=== PATIENT | male | born 1975 | race Caucasian/White ===

== ENCOUNTER 2016-05-15 09:51 | Emergency (ER) | payer OTHER ==
--- NOTE | 2016-05-15 11:03 | ED EKG INTERP ---
EKG Interpretation - EKG Time of EKG reading by physician:: 10:03 EKG Read and Signed by:: Stevenson Panda EKG Interpretation (*Must complete 3 of following elements*): Normal Rate: 83 Rhythm: Normal sinus [employer]: normal QRS: normal TX Interval: normal ST Wave: normal
[2016-05-15 11:40] LABS: MANUAL DIFF NEEDED? NO
[2016-05-15 11:46] LABS: BASO% 0.3 % (0.0-0.8); EOS# 0.26 X1000 (0.0-0.7); EOS% 2.1 % (0.0-10.0); HEMATOCRIT 43.7 % (42.0-52.0); HEMOGLOBIN 14.8 g/dL (14.0-18.0); IMM GRAN# 0.07 X1000 (0.0-0.04); IMM GRAN% 0.6 % (0.0-0.5); LYMPH# 2.28 X1000 (1.2-3.4); LYMPH% 18.8 % (20.5-51.1); MCHC 33.9 g/dL (33-37); MCV 91.4 FL (81-99); MONO# 1.72 X1000 (0.11-0.59); MONO% 14.2 % (1.7-9.3); MPV 9.7 FL (7.4-10.4); PLT 343 X1000 (130-400); RBC 4.78 XMIL (4.7-6.1)
[2016-05-15 11:54] LABS: INR 1.05; PROTIME 11.1 Seconds (9.2-11.7); PTT 27.1 Seconds (22.0-36.0)
[2016-05-15 12:16] LABS: BUN 8 mg/dL (8-22); CALCIUM 8.4 mg/dL (8.8-10.2); GOT 19 U/L (10-34); TCO2 24 mmol/L (25-35); TOTAL BILIRUBIN 1.24 mg/dL (0.20-1.00)
[2016-05-15 12:17] LABS: AGAP 14; ALBUMIN 3.4 g/dL (3.5-5.0); ALKALINE PHOSPHATASE 82 U/L (32-122); CHLORIDE 99 mmol/L (98-107); COSMO 273; GPT 20 U/L (10-44); POTASSIUM 3.5 mmol/L (3.5-5.1); SODIUM 137 mmol/L (136-145)
--- NOTE | 2016-05-15 12:43 | Diag Imaging Result Document ---
PROCEDURE NAME: HEAD W/O CONTRAST - 05/15/[address]: COMPARISON: None. FINDINGS: The ventricles and sulci are normal in size and contour. There is no mass, hemorrhage, or evidence of acute ischemia. The bony calvaria is intact. The visualized paranasal sinuses and mastoid air cells are clear. IMPRESSION: Negative head CT.
--- NOTE | 2016-05-15 13:52 | Diag Imaging Result Document ---
PROCEDURE NAME: CHEST-2 VIEWS - 05/15/2016 PA AND LATERAL RADIOGRAPH OF THE CHEST: COMPARISON: None available. FINDINGS: The lungs are grossly clear. There is no discrete pleural fluid collection or evidence of pneumothorax. The cardiomediastinal silhouette and upper airway are grossly unremarkable. IMPRESSION: No evidence of acute chest pathology.
[2016-05-15 14:43] LABS: URINE CULTURE NEEDED? NO; URINE MICRO REVIEW NEEDED? NO; URINE SOURCE CLEAN CATCH
[2016-05-15 14:47] LABS: BILIRUBIN URINE NEGATIVE (NEGATIVE); BLOOD URINE NEGATIVE (NEGATIVE); COLOR YELLOW; GLUCOSE URINE NEGATIVE (NEGATIVE); LEUKOCYTES URINE NEGATIVE (NEGATIVE); NITRITE URINE NEGATIVE (NEGATIVE); PROTEIN URINE NEGATIVE (NEGATIVE); SP GRAVITY URINE 1.011; TURBIDITY URINE CLEAR (CLEAR); UR EPITHELIAL CELLS <10 /HPF (<10); URINE BACTERIA NEGATIVE /HPF; URINE RBC <10 /HPF (<10); URINE WBC <10 /HPF (<10); UROBILINOGEN URINE 3 mg/dL (NORMAL)
[2016-05-15 15:24] LABS: UR AMPHETAMINES QUAL NONE DETECTED (NONE DETECT); UR BARBITUATES QUAL NONE DETECTED (NONE DETECT); UR BENZODIAZEPIN QUAL NONE DETECTED (NONE DETECT); UR CANNABINOIDS QUAL NONE DETECTED (NONE DETECT); UR COCAINE QUAL NONE DETECTED (NONE DETECT); UR METHADONE QUAL NONE DETECTED (NONE DETECT); UR OPIATES QUAL NONE DETECTED (NONE DETECT); UR OXYCODONE QUAL NONE DETECTED (NONE DETECT); UR PCP QUAL NONE DETECTED (NONE DETECT)
--- NOTE | 2016-05-15 15:30 | PROVIDER DOCUMENTATION ---
HPI-Musculoskeletal Pain/Inj - GENERAL Chief Complaint: Extremity Pain Stated Complaint: heaviness/little use of lft arm Time Seen by Provider: 05/15/16 15:10 Source: patient - HX OF PRESENT ILLNESS-MUSKULOSKELTAL Nature of Presenting Problem: 41 yo M presents to ED with cc of L hand numbness and tingling that began last night as pt drove home from work. Pt reports that his hand turned blue at that time. Pt's hand is not blue in ED. Pt reports no injury. Pt has hx of Crohn's colitis. Upon arrival to ED pt is in no apparent distress. Quality of Pain: reports: other (tingling, numbness) Severity in ED: mild Onset/Duration: abrupt, last night Timing: improving Modifying Factors: improves with: immobilization Any recent injury?: No Locality of Occurance: Other (In car while driving) Similar Symptoms Previously?: No Recently seen or treated by another doctor?: No - UPPER EXTREMITY PAIN/INJURY Extremities Pain Location: hand: left (numbness and tingling) Associated Symptoms: reports: tingling in upper ext, weakness in upper ext Review of Systems - Adult - REVIEW OF SYSTEMS - ADULT Constitutional: reports: no symptoms reported. denies: chills, fever Eyes: reports: no symptoms reported. denies: discharge, blurred vision Ears, Nose, Mouth & Throat: reports: no symptoms reported. denies: ear pain, nose pain Cardiovascular: reports: no symptoms reported. denies: chest pain, edema Respiratory: reports: no symptoms reported. denies: cough, dyspnea on exertion Gastrointestinal: reports: no symptoms reported. denies: abdominal pain, hematemesis Genitourinary: reports: no symptoms reported. denies: dysuria, discharge Musculoskeletal: reports: muscle weakness (L hand). denies: bone pain Integumentary: reports: no symptoms reported. denies: hives, itching Neurological: reports: numbness (L hand), paresthesia (L hand) Psychiatric: reports: no symptoms reported. denies: anxiety, anti-depressant use Endocrine: reports: no symptoms reported. denies: cold intolerance, heat intolerance Hematologic/Lymphatic: reports: no symptoms reported. denies: blood clots, easy bruising Allergic/Immunologic: reports: no symptoms reported. denies: allergic reactions , eczema All Other Systems: Reviewed and Negative Past History - Adult - PAST MEDICAL HISTORY-ADULT Review of Records: reports: Old Records Reviewed, Nursing Assessment Review, Medications Reviewed Gastrointestinal: reports: Crohn's - IMMUNIZATION STATUS Childhood Immunizations: See Nurse Assessment Flu Vaccine: See Nurse Assessment - SOCIAL HISTORY Smoking: chew Physical Exam-Injury Related - Physical Exam-Injury Related Initial Vital Signs Reviewed: Yes General Appearance: appears well, alert, no apparent distress Eyes: PERRL/EOMI, pink conjunctivae Head, Ears, Nose, Mouth & Throat: normocephalic/atraumatic, moist mucous membranes Neck: non-tender, full range of motion Respiratory: chest non-tender, no accessory muscle use Cardiovascular: normal peripheral pulses, regular rate, rhythm Abdominal Exam: non tender, soft Lymphatic: no adenopathy Back Exam: normal inspection, no vertebral tenderness Extremity: normal range of motion, non-tender, other (Minor L handed weakness). negative: deformity, erythema Integumentary: normal color, warm/dry Neurologic: grossly normal, no motor/sensory deficits Psych/Mental Status: AL, normal mood/affect, normal thought content, normal thought process, oriented x 3 - Glascow Coma Score Best Eye Response (Reese): (4) open spontaneously Best Verbal Response (Reese): (5) oriented Best Motor Response (Reese): (6) obeys commands Progress - PLAN OF CARE/RESULTS Progress/Plan/Lab Results: Vital Signs - 24 hr 05/15/16 10:09 Temperature 97.5 F L Pulse Rate 89 Respiratory 18 Rate Blood Pressure 130/84 O2 Sat by Pulse 99 Oximetry Orders Category Date Time Status Cardiac Monitoring DIRECTED Care 05/15/16 11:22 Active Finger Stick Blood Sugar (ED) DIRECTED Care 05/15/16 11:22 Active Saline Loc NOW Care 05/15/16 11:22 Active CHEST-2 VIEWS [RAD] Stat Exams 05/15/16 11:24 Draft HEAD W/O CONTRAST [CT] Stat Exams 05/15/16 11:22 Draft CBC WITH ELECTRONIC DIFF [HEME] Stat Lab 05/15/16 11:29 Completed COMPREHENSIVE METABOLIC PANEL [CHEM] Stat Lab 05/15/16 11:29 Completed PROTIME WITH INR [COAG] Stat Lab 05/15/16 11:29 Completed PTT [COAG] Stat Lab 05/15/16 11:29 Completed TROPONIN T Stat Lab 05/15/16 11:29 Completed URINALYSIS W/POSS RFLX CULT [URINALYSIS] Stat Lab 05/15/16 14:35 Completed URINE DRUG SCREEN Stat Lab 05/15/16 14:35 Completed EKG [EKG] Stat Ther 05/15/16 10:01 Ordered Laboratory Tests 05/15/16 05/15/16 05/15/16 11:29 11:29 11:29 WBC 12.14 H RBC 4.78 Hgb 14.8 Hct 43.7 MCV 91.4 MCH 31.0 MCHC 33.9 RDW Std Deviation 13.7 Plt Count 343 MPV 9.7 Immature Gran % (Auto) 0.6 H Neut % (Auto) 64.0 Lymph % (Auto) 18.8 L Braxton % (Auto) 14.2 H Eos % (Auto) 2.1 Baso % (Auto) 0.3 Immature Gran # (Auto) 0.07 H Neut # (Auto) 7.77 H Lymph # (Auto) 2.28 Braxton # (Auto) 1.72 H Eos # (Auto) 0.26 Baso # (Auto) 0.04 PT 11.1 INR 1.05 PTT (Actin FS) 27.1 Sodium 137 Potassium 3.5 Chloride 99 Carbon Dioxide 24 L Anion Gap 14 BUN 8 Creatinine 0.9 Estimated GFR/1.73 m2 > 60 BUN/Creatinine Ratio 9 Glucose 111 H Calculated Osmolality 273 Calcium 8.4 L Total Bilirubin 1.24 H AST 19 ALT 20 Alkaline Phosphatase 82 Troponin T Total Protein 7.0 Albumin 3.4 L Globulin 3.6 Albumin/Globulin Ratio 0.9 Urine Source Urine Color Urine Turbidity Urine pH Ur Specific Harmony Urine Protein Ur Glucose (Stick) Ur Ketones (Stick) Urine Blood Urine Nitrite Urine Bilirubin Urobilinogen Dipstick Urine Leukocytes Urine WBC (Auto) Urine RBC (Auto) U Epithel Cells (Auto) Urine Bacteria (Auto) Urine Opiates Screen Ur Oxycodone Screen Ur Methadone, Qual Ur Barbiturates Screen Ur Phencyclidine Scrn Ur Amphetamines Screen U Benzodiazepines Scrn Urine Cocaine Screen U Cannabinoids Screen 05/15/16 05/15/16 05/15/16 11:29 14:35 14:35 WBC RBC Hgb Hct MCV MCH MCHC RDW Std Deviation Plt Count MPV Immature Gran % (Auto) Neut % (Auto) Lymph % (Auto) Braxton % (Auto) Eos % (Auto) Baso % (Auto) Immature Gran # (Auto) Neut # (Auto) Lymph # (Auto) Braxton # (Auto) Eos # (Auto) Baso # (Auto) PT INR PTT (Actin FS) Sodium Potassium Chloride Carbon Dioxide Anion Gap BUN Creatinine Estimated GFR/1.73 m2 BUN/Creatinine Ratio Glucose Calculated Osmolality Calcium Total Bilirubin AST ALT Alkaline Phosphatase Troponin T < 0.010 Total Protein Albumin Globulin Albumin/Globulin Ratio Urine Source CLEAN CATCH Urine Color YELLOW Urine Turbidity CLEAR Urine pH 6.0 Ur Specific Harmony 1.011 Urine Protein NEGATIVE Ur Glucose (Stick) NEGATIVE Ur Ketones (Stick) NEGATIVE Urine Blood NEGATIVE Urine Nitrite NEGATIVE Urine Bilirubin NEGATIVE Urobilinogen Dipstick 3 A Urine Leukocytes NEGATIVE Urine WBC (Auto) <10 Urine RBC (Auto) <10 U Epithel Cells (Auto) <10 Urine Bacteria (Auto) NEGATIVE Urine Opiates Screen NONE DETECTED Ur Oxycodone Screen NONE DETECTED Ur Methadone, Qual NONE DETECTED Ur Barbiturates Screen NONE DETECTED Ur Phencyclidine Scrn NONE DETECTED Ur Amphetamines Screen NONE DETECTED U Benzodiazepines Scrn NONE DETECTED Urine Cocaine Screen NONE DETECTED U Cannabinoids Screen NONE DETECTED Departure - Departure Time of Disposition Order: 15:36 DIAGNOSIS: Neuropathy Disposition: HOME 01 Certified Medical Emergency: Emergent Condition: Good Additional Instructions: ED Follow Up Instructions: You have been treated by a care provider in the Emergency Department. These instructions are being provided to you so you can have an understanding of how to care for yourself upon discharge. Upon discharge from the Emergency Department, you are responsible for making arrangements for follow-up care by a physician of your choice. Take all prescribed medications as directed. Return to the Emergency Department immediately for any new or worsening symptoms. You may call the Physician Referral phone number at [phone] to obtain a list of Physicians who are taking new patients. Attestation - Scribe Verification/Attestation Scribe:: Shasta Leone Acting as Scribe for:: Elías Charles Scribe documention review:: This chart was documented by a scribe and accurately reflects the service the provider performed and the decisions made by the provider. - Physician/ Mid-level Attestation Patient care was provided by Mid-level provider (SPECIAL DAY CLASS TEACHER/PA):: No
[2016-05-15 15:42] VITALS: BP 144/91
--- NOTE | 2016-05-16 06:06 | EKG Report ---
Test Performed on : 05/15/2016 10:03:02 AM Test Reason : cp/sob Blood Pressure : / mmHG Vent. Rate : 083 BPM Atrial Rate : 083 BPM P-R Int : 130 ms QRS Dur : 100 ms QT Int : 370 ms P-R-T Axes : -10 -03 016 degrees QTc Int : 434 ms Normal sinus rhythm. Normal ECG No previous ECGs available Unconfirmed Result
== END 2016-05-15 15:42 | disposition home or self-care (01) ==
LOC: ED 09:51
DX: G62.9 Polyneuropathy, unspecified (principal); R20.0 Anesthesia of skin; R20.9 Unspecified disturbances of skin sensation; R53.1 Weakness; K50.90 Crohn's disease, unspecified, without complications; Z79.52 Long term (current) use of systemic steroids
CPT/HCPCS: 36415; 70450; 71020; 80053; 81001; 82948; 84484; 85025; 85610; 85730; 93005; G0480

== ENCOUNTER 2019-03-15 10:21 | Inpatient (IN) ==
[2019-03-15] MEDS ORDERED: IMODIUM PO PRN (10:34)
[2019-03-15] MEDS: SODIUM CHLORIDE 0.9% INJ SCH (12:15)
[2019-03-15] MEDS: PROTONIX IV SCH (12:15)
[2019-03-15] MEDS: FLAGYL 500 MG/NS 500 MG/100 ML IVPB IV SCH ×2 (12:15→20:32)
[2019-03-15] MEDS: NS 1,000 ML IV SCH (12:15)
[2019-03-15] MEDS: ANUSOL-HC SUPP PR SCH (12:15)
[2019-03-15 12:40] LABS: IRON SATURATION 20 %; TIBC 143 ug/dL; TOTAL IRON 28 ug/dL (53-167); UNBOUND IRON 115 ug/dL (112-346)
[2019-03-15 12:42] LABS: AGAP 11; BUN 6 mg/dL (8-22); CALCIUM 8.5 mg/dL (8.8-10.2); CHLORIDE 95 mmol/L (98-107); COSMO 254; CREATININE 0.9 mg/dL (0.7-1.2); ESTIMATED GFR > 60; GLUCOSE 93 mg/dL (70-104); POTASSIUM 3.5 mmol/L (3.5-5.1); SODIUM 128 mmol/L (136-145); TCO2 22 mmol/L (25-35)
[2019-03-15] MEDS: ZOSYN 3.375 GM in NS 50 ML IV SCH ×2 (13:25→19:16)
[2019-03-15] MEDS: DILAUDID IV PRN ×2 (14:33→20:35)
--- NOTE | 2019-03-15 14:57 | Diag Imaging Result Doc PS360 ---
CT ABD/PELVIS W/IV CONT ONLY - 03/15/2019 INDICATION: Abdominal pain COMPARISON: 04/05/2018 FINDINGS: The lung bases are clear and the heart size is normal. There is mild fatty change of the liver. There is splenomegaly. The spleen measures 16 x 4.5 cm. Other abdominal organs are normal. There is significant inflammatory edema around the rectum indicating proctitis. No constipation. Normal appendix. Stable surgical suture lines in bowel segments in the right lower quadrant. There has been increase in size of the ventral hernia which contains nonobstructed small bowel. Bones are intact and well mineralized. IMPRESSION: 1. Proctitis. 2. Fatty liver. Splenomegaly. 3. Increase in size of the ventral hernia containing nonobstructed small bowel. This exam was performed using automated exposure control, adjustment of mA or kV according to patient size, and/or use of iterative reconstruction technique Electronically signed by Zac Peterson 03/15/2019 2:54 PM
[2019-03-15] MEDS: PHENERGAN IV PRN (20:34)
--- NOTE | 2019-03-15 21:55 | HISTORY AND PHYSICAL ---
CHIEF COMPLAINT: 1. Diarrhea. 2. Lower abdominal pain . 3. Pre rectal excoriation hemorrhoids. 4. Left throat pain. 5. Left lower gum pain. HPI: He is a 43-year-old white gentleman with a known history of Crohn disease not seen in my office since 01/08/2018. Currently receiving the Crohn disease with Remicade by Dr. Shelton. The last report was on 02/23/2019. He continues to have diarrhea. He was seen in my office today in the clinic with above symptoms. On examination he has strep tonsillitis left side and he had a bad caries tooth on the lower molar tooth. He was nauseated, having diarrhea off and on and rectal exam he has a lot of excoriation with multiple folliculitis without any fissures or fistula in ano. He had a significant hemorrhoid noted. He has been admitted to the hospital diarrhea worsening from Crohn disease, impending sepsis. As a result a hospital admission was warranted. His white cell count is high 12,000. Sed rate was high. He was seen before by Dr. Galan. PAST MEDICAL HISTORY: Crohn disease, metabolic syndrome, glucose intolerance, hemorrhoids. He is also has a B12 deficiency and folic acid deficiency. PAST SURGICAL HISTORY: Partial colectomy with sigmoid enterocolostomy repair in 2018. CURRENT MEDICINES: Remicade . ALLERGIES: Not known. 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 Lives in [place]. No smoking, no alcohol. FAMILY HISTORY: Both parents were not known. HEALTH MAINTENANCE: He is refusing flu, pneumonia. Last colonoscopy [address] Galan. REVIEW OF SYSTEMS: HEENT: He had a sore throat, left jaw pain. No earache. No vision problems. Neck: No goiter. No lymphadenopathy. Cardiopulmonary: No chest pain, shortness of breath, PND, orthopnea. GI: Diarrhea and hemorrhoidal pain, artis rectal pain. Significant weight loss, no skin rashes. No joint pain. Neuro: No focal symptoms or weakness. EXAMINATION: Low-grade fever, pulse is 59, blood pressure 115/65.HEENT: Atraumatic, normocephalic. Pupils equal reactive to light. No anemia. No jaundice. TMs are normal slightly cloudy and the left tonsil is inflamed, left lower jaw 2nd premolar tooth was badly infected. Neck: Supple. No lymphadenopathy. No goiter. Chest: Bilateral air entry. Heart: Sounds are regular. No tachycardic. Belly: Soft, scaphoid. No signs of peritonitis. Rectal: Large excoriation with hemorrhoids and multiple folliculitis rash noted. No neurological deficits. INVESTIGATIONS: Sed rate was 79, sodium 128, potassium 3.5, chloride 95 and BUN 6, creatinine 0.9, calcium 8.5. CT scan of the abdomen and pelvis, significant proctitis, fatty liver, splenomegaly about 16 cm, ventral hernia containing non obstructed small bowel. ASSESSMENT AND PLAN: 43-year-old white male with Crohn disease status post colectomy under the care of Dr. Shelton for Remicade with diarrhea and hemorrhoids. PLAN: 1. IV Flagyl and IV Zosyn. 2. Continue IV fluids. 3. Dilaudid for pain. 4. Hemorrhoids. Hydrocortisone suppository, for diarrhea Imodium as needed . 5. On full liquid diet, Phenergan for nausea. 6. Left tonsillitis and gingivitis. Continue IV Zosyn and Protonix IV for gas and reflux disease and will check the CBC, CMP in the morning and consult Dr. Galan's group for Crohn disease and will follow up. cc: Akash Gibson MD
[2019-03-15] MEDS: TYLENOL PO PRN (22:23)
[2019-03-16] MEDS: ZOSYN 3.375 GM in NS 50 ML IV SCH ×4 (00:07→17:13)
[2019-03-16] MEDS: NS 1,000 ML IV SCH ×2 (00:07→14:50)
[2019-03-16] MEDS: DILAUDID IV PRN ×2 (02:45→12:48)
[2019-03-16] MEDS: FLAGYL 500 MG/NS 500 MG/100 ML IVPB IV SCH ×3 (03:41→20:19)
[2019-03-16 07:15] LABS: BASO# 0.03 X1000 (0.0-0.2); BASO% 0.3 % (0.0-0.8); EOS# 0.53 X1000 (0.0-0.7); EOS% 4.7 % (0.0-10.0); HEMATOCRIT 37.4 % (42.0-52.0); HEMOGLOBIN 12.2 g/dL (14.0-18.0); IMM GRAN# 0.04 X1000 (0.0-0.04); IMM GRAN% 0.4 % (0.0-0.5); LYMPH# 1.67 X1000 (1.2-3.4); LYMPH% 14.8 % (20.5-51.1); MCH 29.4 PG (27-31); MCHC 32.6 g/dL (33-37); MCV 90.1 FL (81-99); MONO# 1.17 X1000 (0.11-0.59); MONO% 10.4 % (1.7-9.3); MPV 8.8 FL (7.4-10.4); NEUT# 7.85 X1000 (1.4-6.5); NEUT% 69.4 % (42.2-75.2); PLT 355 X1000 (130-400); RBC 4.15 XMIL (4.7-6.1); RDW 14.2 % (11.5-14.5); WBC 11.29 X1000 (4.8-10.8)
[2019-03-16] MEDS: ANUSOL-HC SUPP PR SCH (10:00)
[2019-03-16] MEDS: PROTONIX IV SCH (11:40)
[2019-03-16] MEDS: SODIUM CHLORIDE 0.9% INJ SCH (11:41)
--- NOTE | 2019-03-16 19:01 | GASTROENTEROLOGY CONSULTATION ---
DATE: 03/16/2019 REASON FOR CONSULT: Crohn disease. HISTORY OF PRESENT ILLNESS: Mr. Cespedes is a 43-year-old male with a history of Crohn disease. He is currently receiving Remicade IV by Dr. Shelton. The patient complained of having fever, nausea, vomiting, diarrhea, and that his diarrhea was bad, he was going every hour. He described seeing blood in his stools. Sometimes it was bright red, and sometimes he said it was dark tarry stools. He also receives iron infusion once every other week. The patient does not remember exactly when he had his iron infusion. He is currently complaining of nausea/vomiting and diarrhea. PAST MEDICAL HISTORY: Crohn disease, arthritis, hemorrhoids. PAST SURGICAL HISTORY: Partial colectomy with sigmoid enterocolostomy repair in 2018. CURRENT HOME MEDICATIONS: Remicade. ALLERGIES: No known drug allergies. SOCIAL HISTORY: He is currently , has 2 kids. Works for the [employer]. He has alcohol occasionally, once every 4 months. Tobacco: He does dip 1 can a day. REVIEW OF SYSTEMS: As per HPI. Otherwise, 12 point review of system is negative. PHYSICAL EXAMINATION: Vital Signs: Temperature 98.6, pulse 73, respirations 20, blood pressure 109/68, oxygen saturation 98% on room air. His weight is 235 pounds, BMI is 34.1 kg/m2. General: He is alert, oriented x3, and a good historian and in no acute distress. HEENT: Pale conjunctivae. No icterus. PERRL. Neck: Supple. Lungs: Clear to auscultation in the anterior dowling. Cardiovascular: Regular rate and rhythm. Abdomen: Obese, distended. No rebound, tenderness, or guarding noted. Active bowel sounds in all 4 quadrants. Extremities: No clubbing, no cyanosis, no edema. Pedal pulses 2+ present bilaterally. Neurological: Alert, oriented x3. Nonfocal. Cranial nerves 2-12 grossly intact. DIAGNOSTIC STUDIES: WBCs 11.29, RBC 4.15, hemoglobin 12.2, hematocrit 37.4, platelet count is 355,000. Sodium 128, potassium 3.5, chloride 95, carbon dioxide 22, anion gap 11, BUN 6, creatinine 0.9, glucose 93, calcium 8.5. Iron 28, TIBC 143. Abdominal CT and pelvis showed proctitis, fatty liver, splenomegaly, increase in size of the ventral hernia containing nonobstructed small bowel. IMPRESSION AND PLAN: Nausea/Vomiting GI bleed Diarrhea Crohn's exacerbation Anemia Diverticulitis Obesity Hemorrhoids PLAN: We will check his stools for C difficile and if negative, we will start him on IV steroid and we plan to do a colonoscopy. We will continue to monitor the patient's hemoglobin and hematocrit. Today, they were 12.2 and 37.4. The patient is currently on IV fluids, normal saline at 80 mL. He is receiving antibiotics Flagyl and Zosyn per PCP. He is on Protonix 40 mg IV twice a day. For his hemorrhoids he receiving Anusol hydrocortisone suppositories daily per PCP. For his nausea, he is getting Phenergan every 6 hours as needed. We have advised patient on consuming high fiber diet, avoid foods with nuts, seed and corn. Awaiting the results of stool studies. We will continue to monitor his CBC, BMP and follow the plan of care per PCP. This plan was discussed with Dr. Nichole. Thank you for your consult and please call us for any further questions or concerns. Dictated by BECK Flores for Ashish Nichole MD cc: Akash Gibson MD Physician Attestation I have seen and examined the patient. I have discussed and reviewed the the note by Shasta SOLARES and agree with findings and plan as documented. In brief, Mr. Jamari Cespedes is 43 year old man with stricturing and fistulizing ileocolonic Crohn's disease s/p SB resection, sigmoidectomy, and enteroenteric fistula takedown on Remicade who presents with N/V, abdominal pain, subjective fever, diarrhea, rectal bleeding, perianal drainage/pain, and progressive weight loss. He reports compliance with remicade infusion every 8 weeks. Last in 02/2019. He says that he has minimal improvement after infusion for 1-2 days before his Crohn's symptoms recur. He reports some oral issues. He has chronic joint pain. He dips tobacco. He has not been treated with any other IBD medications except steroids, which he was on for a year. He has lower abdominal TTP and perianal fistulas noted on exam. Labs here show mild leukocytosis, iron deficiency anemia, hyponatremia. CT shows sign of "proctitis". I suspect his symptoms are from Crohn's disease refractory of Remicade. Will rule out Cdiff. If negative, will start him on IV steroids and plan diagnostic colonoscopy as he has not had one since his surgery last year. Ultimately, I would recommend outpatient referral to [facility] to see IBD specialist. He may need initiation of Entyvio or Stelara. I would recommend stopping antibiotics. KAMEROND
[2019-03-16] MEDS: TYLENOL PO PRN (20:19)
[2019-03-16] MEDS: PHENERGAN IV PRN (20:19)
--- NOTE | 2019-03-16 21:41 | PROGRESS NOTE ---
DATE: 03/16/2019 SUBJECTIVE: The patient has continuous diarrhea on clear liquids. Last Remicade 2 months ago. He still has abdominal cramps and diarrhea. CT findings were discussed. He is on clear liquids. OBJECTIVE: Vital signs: Temperature is 98 degrees, pulse is 73, blood pressure is stable. HEENT: Within normal limits. Neck: Supple. Chest: Clear. Cardiovascular: Heart sounds are regular. Gastrointestinal: Belly is soft, nontender. No signs of peritonitis. INVESTIGATIONS: CBC: White count 11, hematocrit 37, platelets 355,000. Sedimentation rate 79. ASSESSMENT AND PLAN: 1. Diarrhea, abdominal cramps, underlying Crohn disease. 2. External hemorrhoids. 3. Ventral hernia nonobstructive bowel. 4. Left tonsillitis and left lower gingivitis, improving. Continue IV fluids and hydrocortisone suppository, Imodium, IV Zosyn and Flagyl and is on Protonix and check the labs in the morning. Consult with GI with Dr. Traore and will follow up. LEVEL OF DOCUMENTATION: [25] cc: Akash Gibson MD MTDD
[2019-03-17] MEDS: ZOSYN 3.375 GM in NS 50 ML IV SCH ×4 (00:21→17:56)
[2019-03-17] MEDS: FLAGYL 500 MG/NS 500 MG/100 ML IVPB IV SCH ×3 (04:06→20:27)
[2019-03-17] MEDS: NS 1,000 ML IV SCH ×2 (04:06→17:59)
[2019-03-17 07:52] LABS: BASO# 0.04 X1000 (0.0-0.2); BASO% 0.5 % (0.0-0.8); EOS# 0.51 X1000 (0.0-0.7); EOS% 5.9 % (0.0-10.0); HEMOGLOBIN 11.8 g/dL (14.0-18.0); IMM GRAN# 0.02 X1000 (0.0-0.04); IMM GRAN% 0.2 % (0.0-0.5); LYMPH% 17.3 % (20.5-51.1); MCHC 31.9 g/dL (33-37); MCV 90.9 FL (81-99); MONO# 0.97 X1000 (0.11-0.59); MONO% 11.2 % (1.7-9.3); MPV 8.7 FL (7.4-10.4); NEUT# 5.65 X1000 (1.4-6.5); NEUT% 64.9 % (42.2-75.2); PLT 342 X1000 (130-400); RBC 4.07 XMIL (4.7-6.1); RDW 14.6 % (11.5-14.5); WBC 8.69 X1000 (4.8-10.8)
[2019-03-17 08:13] LABS: AGAP 8; ALB/GLOB RATIO 0.7; ALBUMIN 2.7 g/dL (3.5-5.0); ALKALINE PHOSPHATASE 96 U/L (32-122); BUN 3 mg/dL (8-22); CALCIUM 8.1 mg/dL (8.8-10.2); CHLORIDE 106 mmol/L (98-107); COSMO 277; CREATININE 0.8 mg/dL (0.7-1.2); ESTIMATED GFR > 60; GLUCOSE 93 mg/dL (70-104); GOT 17 U/L (10-34); GPT 11 U/L (10-44); POTASSIUM 3.5 mmol/L (3.5-5.1); SODIUM 141 mmol/L (136-145); TCO2 27 mmol/L (25-35); TOTAL BILIRUBIN 0.43 mg/dL (0.20-1.00); TOTAL PROTEIN 6.8 g/dL (6.3-8.3)
[2019-03-17] MEDS: SODIUM CHLORIDE 0.9% INJ SCH (12:44)
[2019-03-17] MEDS: PROTONIX IV SCH (12:44)
--- NOTE | 2019-03-17 18:28 | GASTROENTEROLOGY PROGRESS NOTE ---
DATE: 03/17/2019 SUBJECTIVE: Mr. Cespedes is a 43-year-old male, resting in bed. He still complained of liquid diarrhea and abdominal cramps. He did not feel like eating his breakfast, not because he was feeling nauseated, but because he does not like the food that he is receiving in the hospital. OBJECTIVE: Vital Signs: Temperature 97.9 degrees, pulse 55, respirations 16, blood pressure 101/57, oxygen saturation is 98% on room air. The patient's weight is 235 pounds. BMI is 31.1 kg/m2. General: He is alert, oriented x3, and in no acute distress. HEENT: Pale conjunctivae. No icterus. PERRL. Neck: Supple. Lungs: Clear to auscultation in the anterior dowling. Cardiovascular: The patient is bradycardic. Abdomen: Obese, distended, generalized tenderness. Active bowel sounds heard in all 4 quadrants. Extremities: No clubbing, no cyanosis, no edema. Pedal pulses 2+ present bilaterally. Neurological: Alert oriented x3. LAB: WBC 8.69, RBC 4.07, hemoglobin 11.8, hematocrit 37.0, platelet count 342,000. Sodium 141, potassium 3.5, chloride 106, carbon dioxide is 27, anion gap 8, BUN 3, creatinine 0.8, calcium 8.1, total bilirubin 0.43, AST 17, ALT 11, alkaline phos 96, albumin 2.7. Abdomen and pelvis CT on 03/15 showed proctitis, fatty liver, splenomegaly, increase in the size of the ventral hernia containing nonobstructive small bowel. Stools for WBC showed many WBCs. C-diff toxin was negative. IMPRESSION AND PLAN: Nausea/Vomiting GI bleed Diarrhea Crohn;s exacerbation Anemia Diverticulitis Obesity PLAN: We are awaiting for the results of his Clostridium difficile antigen and if it is negative, we will start the patient on steroids and plan to do a colonoscopy. We recommend outpatient referral to [facility] to see and IBD specialist for change in his Crohn's medications. The patient is currently on IV fluids at 80 mL/h. He is receiving Flagyl and Zosyn. We recommend that his antibiotics can be stopped. He is on Protonix 40 mg daily. We will continue to follow the patient's CBCs and BMPs and follow the plan of care per primary care physician. This plan was discussed with Dr. Nichole. Please call us for any further questions or concerns. Dictated by BECK Flores for Ashish Nichole MD cc: Akash Gibson MD Physician Attestation I have seen and examined the patient. I have discussed and reviewed the the note by Shasta SOLARES and agree with findings and plan as documented. In brief, Mr. 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 His symptoms are mildly improved. Cdiff studies negative. He is on empiric antibiotics, which I will discontinue. Will start on solumedrol 40mg IV daily. Patient is refusing diagnostic colonoscopy as he reports he unable to tolerate all preps except OTC stool softeners (pills). He will need referral to [facility] for evaluation for Entyvio or Stelara therapy upon discharge. [facility]
--- NOTE | 2019-03-17 23:50 | PROGRESS NOTE ---
DATE: 03/17/2019 SUBJECTIVE: The patient is doing little better. Still has some abdominal pain, diarrhea. The CT scan showed some proctitis. The gum pain is improving as well as tonsillitis on the left side. Appreciated GI consult. OBJECTIVE: Vital signs: Temperature is 97.9 degrees, pulse 65, blood pressure 114/63. HEENT: Within normal limits. Neck: Supple. No lymphadenopathy. Chest: Bilateral air entry. Heart: Sounds are regular. Abdomen: Belly is soft, nontender. INVESTIGATIONS: Stools are white cells many. C diff is negative. CBC: White cell count 8.6, hematocrit 37, platelets 342,000. SMA 7 is normal. LFTs were normal. ASSESSMENT AND PLAN: Tonsillitis and gingivitis: 1. On IV Zosyn and Flagyl. 2. Full liquid diet. 3. Waiting for the colonoscopy, as per Dr. Traore; also, based on that further recommendations will be followed and will be coordinated with Dr. Shelton about changing the treatment plan for the Crohn disease. LEVEL OF DOCUMENTATION: 25 minutes. cc: Akash Gibson MD
[2019-03-18] MEDS: ZOSYN 3.375 GM in NS 50 ML IV SCH ×3 (00:36→05:32)
[2019-03-18] MEDS: FLAGYL 500 MG/NS 500 MG/100 ML IVPB IV SCH (04:53)
[2019-03-18] MEDS: NS 1,000 ML IV SCH ×2 (04:54→11:23)
[2019-03-18 07:33] LABS: BASO# 0.03 X1000 (0.0-0.2); BASO% 0.3 % (0.0-0.8); EOS% 5.5 % (0.0-10.0); HEMATOCRIT 35.3 % (42.0-52.0); HEMOGLOBIN 11.3 g/dL (14.0-18.0); IMM GRAN# 0.02 X1000 (0.0-0.04); IMM GRAN% 0.2 % (0.0-0.5); LYMPH# 1.68 X1000 (1.2-3.4); LYMPH% 18.4 % (20.5-51.1); MCH 29.3 PG (27-31); MCV 91.5 FL (81-99); MONO# 1.05 X1000 (0.11-0.59); MONO% 11.5 % (1.7-9.3); MPV 8.7 FL (7.4-10.4); NEUT# 5.84 X1000 (1.4-6.5); NEUT% 64.1 % (42.2-75.2); PLT 345 X1000 (130-400); RBC 3.86 XMIL (4.7-6.1); RDW 14.5 % (11.5-14.5); WBC 9.12 X1000 (4.8-10.8)
[2019-03-18] MEDS: SOLU-MEDROL IV SCH (09:39)
[2019-03-18] MEDS: PROTONIX IV SCH (14:32)
[2019-03-18] MEDS: MIRALAX PO SCH ×2 (14:32→21:57)
[2019-03-18] MEDS: SODIUM CHLORIDE 0.9% INJ SCH (14:33)
--- NOTE | 2019-03-18 18:18 | GASTROENTEROLOGY PROGRESS NOTE ---
DATE: 03/18/2019 SUBJECTIVE: Mr. Cespedes is a 43-year-old male resting in bed. He complained of having some abdominal tenderness and diarrhea, but he has denied any nausea. He said that he is not going to eat any of the foods that he is getting in the hospital because he does not like it. OBJECTIVE: Vital signs: Temperature 98.6 degrees, pulse 64, respirations 19, blood pressure 108/72, oxygen saturation 96% on room air. He his weight is 235 pounds. BMI is 31.1 kg/m2. General: He is alert, oriented x3, in no acute distress. Pale conjunctivae. No icterus. PERRL. Neck: Supple. Lungs: Clear to auscultation in the anterior dowling. Cardiovascular: Regular rate and rhythm. Abdomen: Obese, distended. Generalized tenderness. Active bowel sounds heard in all 4 quadrants. Extremities: No clubbing, no cyanosis, no edema. Pedal pulses 2+ present bilaterally. Neurological: Alert and oriented x3. LABORATORY DATA: WBCs 9.12, RBCs 3.86, hemoglobin 11.3, hematocrit 35.3, platelet count 345,000. Sodium 141, potassium 3.5, chloride 106, carbon dioxide 27, anion gap 8, BUN 3, creatinine 0.8, glucose 93, calcium 8.1, total bilirubin 0.43, AST 17, ALT is 11, alkaline phosphatase is 96. IMPRESSION: 1. Nausea and vomiting. 2. GI/Rectal bleed. 3. Diarrhea. 4. Crohn disease exacerbation. 5. Anemia. 6. Diverticulosis. 7. Fistulizing crohn's Colitis. 8. Obesity. 9. Low albumin suggesting malnutrition. PLAN: We plan to do a flex sigmoidoscopy tomorrow. Patient will receive Miralax 34 gms twice today and to tap water enemas in the morning for bowel prep. The patient's C. difficile antigen is also negative and his assay was negative. His antibiotics have been discontinued and he is receiving Solu Medrol 40 mg IV daily for his Crohn's exacerbation. We have been advising him to go to [facility] for the evaluation of his Crohn's exacerbation because his Remicade is not working, so that he can see an IBD specialist and have a change in his medication to either Entyvio or Stelara. Further plan of care will be based on flex sigmoidoscopy findings. Discussed the risks, benefits, and alternatives of the procedure, patient acknowledges understanding of the plan of care. This plan was discussed with Dr. Traore. Please call us for any further questions or concerns. Dictated by BECK Flores for Camilo Traore MD cc: MD Akash Denise MD I have seen and examined the patient myself. I agree with the above plan of care. I have discussed the above with the patient and all questions were answered. Please call us with any further questions or concerns. PAULA
--- NOTE | 2019-03-18 21:24 | PROGRESS NOTE ---
DATE: 03/18/2019 SUBJECTIVE: The patient to seems to be visibly upset that he did not have any resources or transportation to go to [place] for Crohn's maintenance treatment. The patient was on Remicade and he cannot drink Colyte. He also has financial problems. Upon questioning his mouth pain on the left side of the neck and the gums are getting better. He had 2 loose bowel movements. REVIEW OF SYSTEMS: None reported. PHYSICAL EXAMINATION: Temperature is 98 degrees, pulse 69, blood pressure 122/73.HEENT Exam: Resolving tonsillitis on the left side. He had bad dentition. Neck: Supple. No lymphadenopathy. Chest: Bilateral air entry. Heart: Sounds are regular. Abdomen: Belly is soft, nontender. Good bowel sounds. LABS: White cell count 9, hematocrit 35, platelet 345,000. SMA 7 is normal. LFTs were normal. ASSESSMENT AND PLAN: 1. Crohn's proctitis, currently on Remicade and started on IV Solu-Medrol. 2. Resolving gingivitis and tonsillitis and Dr. Nichole discontinued the antibiotics. 3. Gastrointestinal prophylaxis with IV Protonix and Dilaudid for pain. 4. Awaiting for flex sigmoidoscopy and we will arrange to see Dr. Shelton based on the sigmoidoscopy findings. I appreciated Gastroenterology consult. LEVEL OF DOCUMENTATION: 35 minutes. cc: Akash Gibson MD
[2019-03-19] MEDS: NS 1,000 ML IV SCH ×2 (00:22→13:22)
[2019-03-19] MEDS: SOLU-MEDROL IV SCH (08:23)
[2019-03-19] MEDS: CENTRUM SILVER PO SCH (08:23)
[2019-03-19] MEDS ORDERED: DIPRIVAN 1% ONE ×2 (09:20→10:21)
[2019-03-19] MEDS ORDERED: XYLOCAINE-MPF 2% ONE (09:21)
--- NOTE | 2019-03-19 10:42 | ENDOSCOPY OPERATIVE NOTE ---
[facility] ENDOSCOPY OPERATIVE NOTE , PATIENT: Jamari Cespedes ADM DATE: 03/19/2019 MR #: [id number] [facility] 1975 [id number] FLEXIBLE SIGMOIDOSCOPY PROCEDURE REPORT PROCEDURE DATE: 03/19/2019 SURGEON: Ashish Nichole MD STATUS: inpatient [employer]: PREOPERATIVE DIAGNOSIS: The patient is a 43 yr old male here for a colonoscopy due to previously cam gnosed ileocolonic Crohn's disease and follow up for previously diagnosed perianal Crohn's disease. PROCEDURE PERFORMED: Sigmoidoscopy with biopsy MEDICATIONS: Per Anesthesia PREP TYPE: Miralax Tap Water Enema PREP QUALITY: The overall prep quality was inadequate. ESTIMATED BLOOD LOSS: None CONSENT: The patient understands the risks and benefits of the procedure and understands that these r isks include, but are not limited to: sedation, allergic reaction, infection, perforation and/or bleeding. Alternative means of evaluation and treatment include, among others: physical exam, x-rays, and/or surgical intervention. The patient elects to proceed with this endoscopic procedure. HISTORY AND PHYSICAL: 03/19/2019 DESCRIPTION OF PROCEDURE: During the intra-op preparation period all mechanical and medical equipment was checked for proper function. Hand hygiene and appropriate measures for infection prevention was taken. After the risks, benefits and alternatives of the procedure were thoroughly explained, Informed consent was verified, confirmed and timeout was successfully executed by the treatment team. A digital exam revealed a skin tag and revealed a perian al fistula. The [id number] ([id number]) endoscope was introduced through the anus and advanced to the mid transverse colo n. The instrument was then slowly withdrawn as the colon was fully examined. COLON FINDINGS: Severe ulcerated proctitis from 17cm to anal canal. Multiple biopsies obtained with cold biopsy forceps to r/o CMV. The colonic mucosa appeared normal in the distal transverse colon and descending colon. A biopsy was performed using cold forceps. Retroflexion was not performed due to poor prep. Visualized of underlyi ng mucosa was impaired by liquid stool seen throughout the colon. The scope was then completely withdrawn from the patient and the procedure terminated. SPECIMENS REMOVED: Yes ADVERSE EVENTS: There were no complications. POSTOPERATIVE DIAGNOSIS: COLON FINDINGS: Severe ulcerated proctitis from 17cm to anal canal. Multiple biopsies obtained with cold biopsy forceps to r/o CMV. The colonic mucosa appeared normal in the distal transverse colon and descending colon. A biopsy was performed using cold forceps. RECOMMENDATIONS: 1. Await biopsy results 2. Resume diet 3. Continue IV steroids RECALL: Ashish Nichole MD eSigned: Ashish Nichole MD 03/19/2019 10:41 AM cc: PATIENT NAME: Jamari Cespedes MR#: [id number]
[2019-03-19] MEDS ORDERED: DUONEB (A & A) ONE ×2 (11:06)
[2019-03-19] MEDS ORDERED: ZOFRAN ONE (11:08)
[2019-03-19] MEDS ORDERED: DUONEB (A & A) INH ONE (11:10)
[2019-03-19] MEDS: SODIUM CHLORIDE 0.9% INJ SCH (13:22)
[2019-03-19] MEDS: PROTONIX IV SCH (13:22)
[2019-03-19] MEDS: DILAUDID IV PRN (20:28)
--- NOTE | 2019-03-19 21:49 | PROGRESS NOTE ---
DATE: 03/19/2019 SUBJECTIVE: The patient is doing better, off IV antibiotics. Started on IV steroids. OBJECTIVE: On examination, vital signs are stable. HEENT exam within normal limits. Neck is supple. Chest is clear. Heart sounds are regular. Belly is soft, nontender. Good bowel sounds. No signs of peritonitis. No neurological deficits. LABORATORY DATA: None reported. ASSESSMENT AND PLAN: 1. Crohn disease. Waiting for flexible sigmoidoscopy. Continue on intravenous steroids. History of Remicade. Based on the flexible sigmoidoscopy, further recommendations will be followed. 2. History of noncompliance. Continue present treatment. After the sigmoidoscopy we will follow up. Level of documentation is 25 minutes. cc: Akash Gibson MD
[2019-03-20] MEDS: NS 1,000 ML IV SCH ×2 (01:29→13:25)
[2019-03-20] MEDS: CENTRUM SILVER PO SCH (09:07)
[2019-03-20] MEDS: SOLU-MEDROL IV SCH (09:08)
[2019-03-20] MEDS: SODIUM CHLORIDE 0.9% INJ SCH (11:04)
[2019-03-20] MEDS: PROTONIX IV SCH (11:04)
[2019-03-20] MEDS: PHENERGAN IV PRN (13:34)
--- NOTE | 2019-03-20 18:00 | PROGRESS NOTE ---
DATE: 03/20/2019 SUBJECTIVE: Endoscopy findings: Significant inflammation consistent with possible Crohn disease, not improving with Remicade. He is on IV steroid, oral pain is improving. He appears to be depressed, withdrawn. OBJECTIVE: On exam, temperature is 97 degrees, pulse is 60, blood pressure is stable. HEENT exam within normal limits. Neck is supple. No lymphadenopathy. Chest is clear. Heart sounds are regular. Belly is soft, nontender. Good bowel sounds. Perianal area: All the infection is better. Significant hemorrhoids noted. ASSESSMENT AND PLAN: Diarrhea, abdominal pain due to Crohn disease, proctitis. Follow up on biopsy. Not able to improve with Remicade. Apparently the patient wants to see Dr. Shelton for the treatment. We will also consult Dr. Shelton prior to the discharge. Continue on intravenous steroids, intravenous antibiotics. We will coordinate the care based on the new medications for Crohn. I will speak to Dr. Shelton prior to the discharge. Level of documentation 25 minutes. cc: Akash Gibson MD
[2019-03-20] MEDS: DILAUDID IV PRN (21:06)
--- NOTE | 2019-03-20 22:59 | GASTROENTEROLOGY PROGRESS NOTE ---
DATE: 03/20/2019 SUBJECTIVE: Resting in bed. I spoke to the patient and her friend at bedside. The patient is feeling better today. He is moving his bowels. He is eating better. His abdomen feels better today. OBJECTIVE: Temperature 98 degrees, pulse of 61, respiratory rate 18, blood pressure 113/61, saturating 92% on room air. Body weight of 237 pounds, 8 ounces. BMI of 34.1 kg/m2. General: Patient is lying in bed, in no acute distress. HEENT: Mild pallor. No icterus. Neck: Supple. Abdomen: Protuberant, soft, mild discomfort in the periumbilical region, no rebound or guarding. Extremities: No cyanosis, clubbing. Neurologic: He is alert, awake, oriented. LABS: Hemoglobin and hematocrit 11.3 and 35.3, white count of 9.2, platelet count of 345,000. C. difficile toxin and antigen were negative. Stool for white cells is many. IMPRESSION AND PLAN: 1. Severe ulcerative proctitis noted on recent flexible sigmoidoscopy. Biopsies were obtained to evaluate for CMV. 2. The colonic mucosa appeared normal in the distal transverse colon, descending colon, biopsies obtained. 3. Anemia. 4. Diarrhea. 5. Rectal bleeding is resolved. 6. His diarrhea has improved. 7. History of Crohn's disease on IV Remicade with Dr. Shelton with no improvement, likely Remicade failure. 8. Nausea vomiting is improved. 9. Diverticulosis history, aware. 10. Obesity, BMI of 34.1. 11. Malnutrition. RECOMMENDATIONS: We will continue on Solu-Medrol IV once daily. He is feeling better. We encouraged compliance with the patient. He can likely be discharged home on weaning dose of prednisone 40 mg once daily for 10 days down to 30 mg for 10 days and 20 mg daily for 10 days and 10 mg once a day for 10 days. In the meanwhile, he will continue to receive Remicade with Dr. Shelton. We will try to arrange a consultation with [facility] IBD specialist. The patient will need to discuss treatment management other than anti TNF as he has failed Remicade. He will continue a multivitamin once daily. We will watch his blood counts while he is here. He will continue on pain control with Dilaudid and he is on IV fluids. He is on regular diet. He is tolerating well. The above plans discussed with the patient and friend at bedside and all questions answered. I also spoke with Dr. Gibson. Please call us with any further questions. cc: MD Akash Denise MD Naveen T. Lobo, MD MTDD
[2019-03-21] MEDS: NS 1,000 ML IV SCH ×2 (01:21→15:05)
[2019-03-21] MEDS: SOLU-MEDROL IV SCH (09:01)
[2019-03-21] MEDS: CENTRUM SILVER PO SCH (09:01)
[2019-03-21] MEDS: SODIUM CHLORIDE 0.9% INJ SCH (11:11)
[2019-03-21] MEDS: PROTONIX IV SCH (11:11)
[2019-03-21] MEDS ORDERED: VITAMIN D PO SCH (12:15)
[2019-03-21 12:17] VITALS: BP 127/81
--- NOTE | 2019-03-21 12:30 | GASTROENTEROLOGY PROGRESS NOTE ---
DATE: 03/21/2019 SUBJECTIVE: The patient is resting in bed. The patient is feeling better. He denies any fevers, rigors, chills. He denies any abdominal pain. He is moving his bowels with little or no blood. He is eating better. PHYSICAL EXAMINATION: Vital Signs: Temperature of 97.7 degrees, pulse rate of 54, respiratory rate of 16, blood pressure 113/74, saturating 97% on room air. Body weight of 237 pounds 8 ounces. BMI of 34.1 kg/m2. General Appearance: Moderately built, moderately nourished, lying in bed, in no acute distress. HEENT: Pale conjunctivae. No icterus. Pupils equal, reactive to light and accommodation. Neck: Supple. Abdomen: Soft, nontender, nondistended. No guarding or rebound. Mild discomfort in the periumbilical region. Extremities: No cyanosis, clubbing, or edema. Neurologic: Alert, awake, oriented x3. LABS: Hemoglobin and hematocrit are 11.8 and 35.3, white count of 9.12, platelet count of 345,000. These labs are from 03/18/2019. IMPRESSION AND PLAN: 1. Severe ulcerative proctitis noted on recent flexible sigmoidoscopy. Biopsies obtained to evaluate for cytomegalovirus. 2. Colonic mucosa appeared normal in the distal transverse colon, descending colon. Biopsies were obtained. They are currently pending. 3. Anemia, which is mild. 4. Diarrhea, which is resolved. Rectal bleeding is resolved. 5. History of Crohn's disease, status post partial colectomy in 2018. He is on intravenous Remicade with Dr. Shelton with no improvement, likely Remicade failure. May need to escalate therapy with agents like Entyvio or Stelara. 6. Nausea and vomiting, improved. 7. History of diverticulosis, aware. 8. Obesity, body mass index of 34.1. RECOMMENDATIONS: 1. The patient continues on Solu-Medrol IV once daily for now. He is feeling better. He will be discharged on a weaning dose of prednisone, which he will continue for 40 days. The patient will continue on Remicade per Dr. Shelton. The patient will be started on vitamin D 2000 units once daily. We will try to arrange a consultation with [facility] IBS specialist in order to discuss the options for refractory perianal Crohn's disease since he has failed Remicade. 2. He will continue a multivitamin once daily. 3. He is on pain control with IV Dilaudid. He is on IV fluids. He is tolerating his diet well. I have discussed the above plan of care with the patient and all questions were answered. Please call us with any further questions. Also discussed with Dr. Gibson. cc: MD Akash Denise MD
[2019-03-21] MEDS: PHENERGAN IV PRN (12:43)
[2019-03-21] MEDS ORDERED: FLU VACCINE IM ONE (12:43)
[2019-03-21] MEDS ORDERED: PREVNAR 13 IM ONE (12:44)
--- NOTE | 2019-03-21 16:15 | DISCHARGE SUMMARY ---
ADMISSION DATE: 03/15/2019 DISCHARGE DATE: 03/21/2019 DISCHARGING DIAGNOSES: 1. Abdominal pain and diarrhea due to Crohn's proctitis. 2. Left tonsillitis. 3. Gingivitis in the left lower jaw. 4. External hemorrhoids. 5. Glucose intolerance. 6. B12, folic acid deficiency. 7. Splenomegaly. 8. Ventral hernia. CONSULTS: Dr. Shelton and Dr. Nichole. PROCEDURES: Sigmoidoscopy. Findings, active colitis. Biopsies are pending. BRIEF HISTORY: A 43-year-old, white male with a known history of Crohn's disease, failed with Asacol, currently under Remicade treatment by Dr. Shelton. Came in with abdominal pain, diarrhea, perianal irritation, hemorrhoids, associated with throat pain due to tonsillitis and gingivitis. HOSPITAL COURSE: The patient had a high sedimentation rate. The patient was given IV antibiotics, Zosyn, Flagyl, followed by IV steroids. He was also given IV fluids. He is somewhat depressed and despondent due to financial constraints. 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 Further workup revealed active Crohn's disease on Remicade. I spoke to Dr. Shelton. He is going to see if he getting the maximal dose of Remicade. Other options were discussed. Going for [facility] for a second opinion. At this time, he wants to be treated. Continue on Remicade, steroids, and Flagyl. Perianal irritation is much improved. Rest of the hospital course was uneventful. LABS: White cell count 9.1, hematocrit 35, platelets 345,000. SMA 7 is normal. LFTs normal. Clostridium difficile antigen is negative. Stool for white cells, many. RADIOLOGY PROCEDURES: CT scan of the abdomen and pelvis, proctitis, fatty liver, spleen is about 16 cm, ventral hernia, nonobstructive bowel. DISCHARGE INSTRUCTIONS: 1. Flu vaccine 03/21/2019, pneumococcal vaccine 13 on 03/21/2019. 2. Hydrocortisone suppositories for hemorrhoids, Flagyl 500 t.i.d., vitamin D3 with 2000 units daily, prednisone 40 mg daily as a tapered dose. Continue Remicade until he goes to [facility]. 3. 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 Patient is willing to go. Plan of care was discussed with the patient. cc: MD Camilo Soraino MD Naveen T. Lobo, MD Michael Kelso, MD
== END 2019-03-21 16:19 | disposition home or self-care (01) | DRG 386 ==
LOC: DIRADM 10:21 → 3N 11:29
PROVIDERS: ADMIT Internal Medicine; ATTEND Internal Medicine